=== PATIENT | male | born 1985 | race Caucasian/White ===

== ENCOUNTER 2023-11-12 14:57 | Inpatient (IN) ==
[2023-11-12] MEDS: HYDROmorphone 1 MG/ML SYRINGE IV ONE ×3 (15:30→23:10)
[2023-11-12] MEDS: ACETAMINOPHEN 1,000 MG/100 ML BAG IV ONE ×2 (15:30→23:23)
[2023-11-12] MEDS: ONDANSETRON 4 MG/2 ML VIAL IV ONE (15:31)
[2023-11-12] MEDS: KETOROLAC 15 MG/ML VIAL IV ONE ×2 (15:31→23:12)
[2023-11-12] MEDS: 0.9 % SODIUM CHLORIDE 1,000 ML IV ONE ×2 (15:31)
[2023-11-12 18:26] LABS: Blood Urea Nitrogen 18 mg/dL (6-20); Calcium 8.4 mg/dL (8.6-10.4); Carbon Dioxide 21 mmol/L (22-30); Chloride 108 mmol/L (96-108); Glomerular Filtration Rate 57; Glucose 152 mg/dL (70-105); Potassium 3.8 mmol/L (3.3-5.1); Sodium 140 mmol/L (133-145)
[2023-11-12] MEDS: PROMETHAZINE 25 MG/ML VIAL IM ONE (19:38)
[2023-11-12 19:47] LABS: Appearance,Urine Clear (Clear); Bacteria,Urine 0 /hpf (0); Bilirubin,Urine Negative (Negative); Color,Urine Yellow; Culture Indicated,Urine No; Glucose,Urine (UA) Negative (Negative); Ketones,Urine 40 mg/dL (Negative); Leukocyte Esterase,Urine Negative /uL (Negative); Nitrate,Urine Negative (Negative); PH,Urine 5.5 (5.0-9.0); Protein,Urine Negative (Negative); Urine Blood Negative ery/mcL (Negative); Urine RBC 0 /hpf (0-3); Urine Squamous Epithelial Cell 0 /hpf (0-4); Urine WBC 0 /hpf (0-4); Urobilinogen,Urine Normal
[2023-11-12] MEDS: TAMSULOSIN 0.4 MG CAPSULE PO ONE (20:14)
[2023-11-12] MEDS ORDERED: NALOXONE HCL 0.4 MG/ML VIAL IV PRN (22:55)
[2023-11-12] MEDS ORDERED: SENNOSIDES 1 TABLET PO PRN (22:55)
[2023-11-12] MEDS ORDERED: PROMETHAZINE 25 MG TABLET PO PRN (22:55)
[2023-11-12] MEDS ORDERED: ACETAMINOPHEN 325 MG TABLET PO PRN (22:55)
[2023-11-12] MEDS: LACTATED RINGERS 1,000 ML IV ONE (23:22)
[2023-11-12] MEDS: MELATONIN 3 MG TABLET PO SCH (23:55)
[2023-11-13] MEDS: HYDROmorphone 1 MG/ML SYRINGE ONE
[2023-11-13] MEDS: ACETAMINOPHEN 1,000 MG/100 ML BAG IV ONE (00:02)
[2023-11-13] MEDS: KETOROLAC 15 MG/ML VIAL ONE (00:02)
[2023-11-13] MEDS: MELATONIN 3 MG TABLET PO ONE (00:35)
[2023-11-13] MEDS: LACTATED RINGERS 1,000 ML IV SCH (00:49)
[2023-11-13] MEDS: oxyCODONE IR 5 MG TABLET PO PRN (01:01)
[2023-11-13] MEDS: oxyCODONE IR 5 MG TABLET PO ONE ×2 (01:07→06:32)
[2023-11-13] MEDS: 0.9 % SODIUM CHLORIDE 10 ML SYRINGE IV SCH (05:20)
[2023-11-13 06:25] LABS: Blood Urea Nitrogen 15 mg/dL (6-20); Calcium 8.5 mg/dL (8.6-10.4); Carbon Dioxide 24 mmol/L (22-30); Chloride 108 mmol/L (96-108); Glomerular Filtration Rate 49; Glucose 89 mg/dL (70-105); Potassium 3.7 mmol/L (3.3-5.1); Sodium 139 mmol/L (133-145)
[2023-11-13 07:18] LABS: Basophils # (Auto) 0.03 K/mcL (0.00-0.30); Basophils % (Auto) 0.3 % (0.0-2.0); Eosinophils # (Auto) 0.17 K/mcL (0.00-0.70); Eosinophils % (Auto) 1.6 % (0.0-7.0); Hematocrit 34.1 % (40.1-51.0); Hemoglobin 11.2 g/dL (13.7-17.5); Lymphocytes # (Auto) 2.55 K/mcL (1.50-4.80); Lymphocytes % (Auto) 24.6 % (15.5-49.0); Mean Cell Volume 90.9 fL (80.0-100.0); Mean Corpuscular HGB Conc 32.8 g/dL (31.0-36.0); Mean Platelet Volume 9.1 fL (8.8-12.5); Monocytes # (Auto) 1.05 K/mcL (0.10-0.90); Monocytes % (Auto) 10.1 % (1.0-12.0); Neutrophils % (Auto) 63.3 % (38.0-78.0); Platelet Count 244 K/mcL (140-440); RBC 3.75 M/mcL (4.63-6.08); Red Cell Distribution Width 13.1 % (11.5-14.5); WBC 10.4 K/mcL (4.5-11.0)
[2023-11-13] MEDS: morphine 4 MG/ML VIAL IV PRN (07:26)
[2023-11-13] MEDS: morphine 4 MG/ML VIAL ONE (07:43)
[2023-11-13] MEDS: HYDROmorphone 1 MG/ML SYRINGE IV PRN (08:30)
[2023-11-13] MEDS: PANTOPRAZOLE 40 MG VIAL IV SCH (08:30)
[2023-11-13] MEDS: KETOROLAC 15 MG/ML VIAL IV PRN (08:30)
[2023-11-13] MEDS: ONDANSETRON 4 MG/2 ML VIAL IV PRN (08:30)
[2023-11-13] MEDS: TAMSULOSIN 0.4 MG CAPSULE PO SCH (08:32)
[2023-11-13] MEDS: ACETAMINOPHEN 500 MG TABLET PO PRN (08:36)
[2023-11-13] MEDS: CALCIUM CARBONATE 500 MG TAB.CHEW CHEWED PRN (12:52)
[2023-11-13 16:34] LABS: Blood Urea Nitrogen 12 mg/dL (6-20); Calcium 8.5 mg/dL (8.6-10.4); Carbon Dioxide 27 mmol/L (22-30); Chloride 108 mmol/L (96-108); Glomerular Filtration Rate 68; Glucose 102 mg/dL (70-105); Potassium 3.8 mmol/L (3.3-5.1); Sodium 140 mmol/L (133-145)
[2023-11-14 06:38] LABS: Basophils # (Auto) 0.03 K/mcL (0.00-0.30); Basophils % (Auto) 0.4 % (0.0-2.0); Eosinophils # (Auto) 0.26 K/mcL (0.00-0.70); Eosinophils % (Auto) 3.7 % (0.0-7.0); Hematocrit 33.9 % (40.1-51.0); Lymphocytes # (Auto) 2.85 K/mcL (1.50-4.80); Lymphocytes % (Auto) 40.2 % (15.5-49.0); Mean Cell Volume 91.9 fL (80.0-100.0); Mean Corpuscular HGB Conc 32.4 g/dL (31.0-36.0); Mean Platelet Volume 9.5 fL (8.8-12.5); Monocytes # (Auto) 0.49 K/mcL (0.10-0.90); Monocytes % (Auto) 6.9 % (1.0-12.0); Neutrophils % (Auto) 48.5 % (38.0-78.0); Platelet Count 226 K/mcL (140-440); RBC 3.69 M/mcL (4.63-6.08); Red Cell Distribution Width 12.9 % (11.5-14.5); WBC 7.1 K/mcL (4.5-11.0)
[2023-11-14 07:14] LABS: Blood Urea Nitrogen 13 mg/dL (6-20); Calcium 8.8 mg/dL (8.6-10.4); Carbon Dioxide 25 mmol/L (22-30); Chloride 108 mmol/L (96-108); Glomerular Filtration Rate 94; Glucose 88 mg/dL (70-105); Potassium 3.8 mmol/L (3.3-5.1); Sodium 141 mmol/L (133-145)
[2023-11-14] MEDS: MAGNESIUM HYDROXIDE 30 ML ORAL.SUSP PO PRN (08:00)
== END 2023-11-14 12:02 | disposition home or self-care (01) | DRG 694 ==
LOC: ED 14:57 → MEDSUR 22:45
PROVIDERS: ADMIT Student in an Organized Health Care Education/Training Program; ATTEND Student in an Organized Health Care Education/Training Program